=== PATIENT | male | born 1955 | race American Indian/Alaskan Native ===

== ENCOUNTER 2021-12-20 08:31 | Outpatient (CLI) | payer MEDICARE ==
[2021-12-20 09:22] LABS: Blood Urea Nitrogen 16 mg/dL (9-20)
--- NOTE | 2021-12-20 10:33 | Cat Scan Report ---
CTA CHEST WITH CONTRAST INDICATION / CLINICAL INFORMATION: I71.2 Thoracic aortic aneurysm 100 ML OMNI 350 . TECHNIQUE: Axial CT images were obtained through the chest after injection of IV contrast. 3 plane ND P and/or 3D reconstructions were produced. All CT scans at this location are performed using CT dose reduction for ALARA by means of automated exposure control. COMPARISON: None available. FINDINGS: PULMONARY ARTERIES: No pulmonary emboli. Dilatation of main pulmonary artery, measuring 3.7 cm. THORACIC AORTA: No significant abnormality. Ascending thoracic aorta measures 4.2 cm in greatest diam eter. Descending thoracic aorta measures 2.9 cm in greatest diameter. HEART: Enlarged CORONARY ARTERY CALCIFICATION: None. MEDIASTINUM / BRENNON: No significant abnormality. PLEURA: No pleural effusion. No pneumothorax. LUNGS: No acute air space or interstitial disease. ADDITIONAL FINDINGS: None. UPPER ABDOMEN: 1.6 cm cyst interpolar region right kidney. SKELETAL STRUCTURES: No significant osseous abnormality. IMPRESSION: 1. Mild ectasia of the ascending thoracic aorta without evidence of aneurysm. Ascending and descendi ng thoracic aortic measurements as above. 2. Dilatation of main pulmonary artery measuring 3.7 cm, can be seen in the clinical setting of pulm onary arterial hypertension. No pulmonary embolism. 3. No acute intrathoracic findings Signer Name: Thony Barnes MD Signed: 12/20/2021 10:28 AM Workstation Name: [id number]
== END 2021-12-20 08:32 | disposition home or self-care (01) ==
LOC: CT 08:31
PROVIDERS: ATTEND Internal Medicine Cardiovascular Disease
DX: I77.810 Thoracic aortic ectasia (principal)
CPT/HCPCS: 36415; 71275; 82565; 84520; Q9967